=== PATIENT | female | born 1990 | race African-American/Black ===

== ENCOUNTER 2019-07-06 08:06 | Inpatient (IN) | payer MEDICAID ==
[~2019-07-06] VITALS: Ht 167.6 cm; Wt 74.8 kg
[2019-07-06] MEDS ORDERED: SODIUM CHLORIDE 0.9% 1,000 ML IV ONE (08:37)
[2019-07-06] MEDS ORDERED: ONDANSETRON HCL 4MG/2ML INJ IV STA (08:37)
[2019-07-06] MEDS ORDERED: KETOROLAC 30MG/ML VIAL IV STA (08:37)
[2019-07-06 09:24] LABS: BASOPHILS % 0.4 % (0.0-2.0); EOSINOPHILS % 1.1 % (0.0-5.0); HEMATOCRIT. 40.1 % (36.0-48.0); HEMOGLOBIN. 12.9 g/dL (12.0-16.0); LYMPHOCYTES % 17.3 % (20.0-50.0); MEAN CORPUSCULAR HEMOGLOBIN 27.2 pg (28.0-32.0); MEAN CORPUSCULAR VOLUME 84.7 fL (81.0-99.0); MEAN PLATELET VOLUME 8.9 fl (7.4-10.4); NEUTROPHILS % 75.2 % (40.0-76.0); PLATELET 318 x1000/uL (130-400); RED BLOOD CELL COUNT 4.74 mill/uL (4.2-5.4); RED CELL DISTRIBUTION WIDTH 14.5 % (11.6-14.6)
[2019-07-06 09:30] LABS: PROTHROMBIN TIME 10.4 sec (9.6-11.0)
[2019-07-06 09:34] LABS: CHLORIDE 110 mEq/L (98-107)
[2019-07-06] MEDS ORDERED: HYDRALAZINE 20MG/ML VIAL IV ONE (10:15)
[2019-07-06 10:24] LABS: HCG SCREEN NEGATIVE
[2019-07-06 10:41] LABS: CLARITY URINE CLEAR (CLEAR); COLOR URINE YELLOW (YELLOW); KETONES URINE NEGATIVE (NEGATIVE); LEUKOCYTE ESTERASE URINE NEGATIVE (NEGATIVE); NITRITE URINE NEGATIVE (NEGATIVE); OCCULT BLOOD URINE NEGATIVE (NEGATIVE); PROTEIN URINE NEGATIVE (NEGATIVE); SPECIFIC GRAVITY URINE 1.014 (1.005-1.030); UROBILINOGEN URINE 0.2 E.U./dL (0.2-1.0)
[2019-07-06] MEDS ORDERED: MECLIZINE 25MG TABLET PO ONE (11:45)
[2019-07-06 15:00] VITALS: BP 137/81
[2019-07-06] MEDS ORDERED: CARB200T MT (16:09)
[2019-07-06 16:40] VITALS: BP 137/81
[2019-07-06] MEDS ORDERED: HYDRALAZINE 20MG/ML VIAL IV PRN (18:00)
[2019-07-06] MEDS ORDERED: CLONIDINE 0.1MG TABLET PO PRN (18:00)
[2019-07-06 20:00] VITALS: BP 126/86
[2019-07-06] MEDS: CARBAMAZEPINE 200MG TABLET PO SCH (20:20)
[2019-07-06] MEDS ORDERED: LORAZEPAM 2MG/ML CPJ IV PRN (20:30)
[2019-07-06] MEDS: MECLIZINE 25MG TABLET PO PRN (20:43)
[2019-07-06 23:40] VITALS: BP 135/85
[2019-07-07 04:00] VITALS: BP 100/60
[2019-07-07] MEDS: MECLIZINE 25MG TABLET PO PRN ×2 (08:28→21:10)
[2019-07-07] MEDS: CARBAMAZEPINE 200MG TABLET PO SCH ×2 (08:28→21:10)
[2019-07-07 16:00] VITALS: BP 145/90
[2019-07-07] MEDS: FERROUS SULFATE 325MG TABLET PO SCH (18:38)
[2019-07-07] MEDS: RISPERIDONE 1MG TABLET PO SCH (18:38)
[2019-07-07 20:00] VITALS: BP 135/83
[2019-07-08] VITALS: BP 119/78
[2019-07-08 04:00] VITALS: BP 122/72
[2019-07-08 08:00] VITALS: BP 129/86
[2019-07-08] MEDS: CARBAMAZEPINE 200MG TABLET PO SCH ×2 (08:53→21:54)
[2019-07-08] MEDS: MECLIZINE 25MG TABLET PO PRN ×3 (08:53→21:54)
[2019-07-08] MEDS: RISPERIDONE 1MG TABLET PO SCH ×2 (08:53→21:54)
[2019-07-08] MEDS: FERROUS SULFATE 325MG TABLET PO SCH ×3 (08:54→18:18)
[2019-07-08 12:00] VITALS: BP 110/85
[2019-07-08] MEDS: ONDANSETRON HCL 4MG/2ML INJ IV PRN ×2 (13:18→13:19)
[2019-07-08 16:00] VITALS: BP 110/76
[2019-07-08 20:00] VITALS: BP 119/76
[2019-07-09] VITALS: BP 112/75
[2019-07-09 04:00] VITALS: BP 105/68
[2019-07-09 08:00] VITALS: BP 148/83
[2019-07-09] MEDS: CARBAMAZEPINE 200MG TABLET PO SCH (08:55)
[2019-07-09] MEDS: FERROUS SULFATE 325MG TABLET PO SCH ×2 (08:55→14:17)
[2019-07-09] MEDS: MECLIZINE 25MG TABLET PO PRN (08:55)
[2019-07-09] MEDS: RISPERIDONE 1MG TABLET PO SCH (08:55)
[2019-07-09 12:00] VITALS: BP 137/55
[2019-07-09 16:00] VITALS: BP 138/81
[2019-07-09 16:38] VITALS: BP 138/81
== END 2019-07-09 18:48 | disposition home or self-care (01) | DRG 53 ==
LOC: ER 08:06 → 6WST 10:23 → ENRESERV 13:57 → 6WST 16:43
PROVIDERS: ADMIT Internal Medicine; ATTEND Internal Medicine
DX: G40.909 Epilepsy, unspecified, not intractable, without status epilepticus (principal); E87.8 Other disorders of electrolyte and fluid balance, not elsewhere classified; F32.9 Major depressive disorder, single episode, unspecified; S01.01XA Laceration without foreign body of scalp, initial encounter; R42 Dizziness and giddiness; Z81.8 Family history of other mental and behavioral disorders; Z72.0 Tobacco use; Y09 Assault by unspecified means; Z82.49 Family history of ischemic heart disease and other diseases of the circulatory system; Z90.49 Acquired absence of other specified parts of digestive tract; X58.XXXA Exposure to other specified factors, initial encounter; Y93.89 Activity, other specified; Y92.89 Other specified places as the place of occurrence of the external cause; Y99.8 Other external cause status
CPT/HCPCS: 36415; 70551; 71045; 81003; 84703; 96374; 97163; 99285; J0360; J1885; J2060; J2405; J7030; J8597